=== PATIENT | female | born 1975 | race Caucasian/White ===

== ENCOUNTER 2016-06-28 08:58 | Emergency (ER) | payer SELFPAY ==
[~2016-06-28] VITALS: Ht 170.2 cm; Wt 62.0 kg
[~2016-06-28 08:58] MED LIST: LORTA5 PO; PROBCAP4 PO; ZOFR4TAB3 SL
[2016-06-28 09:01] VITALS: BP 133/89; PULSE 94; RESP 17; TEMP 97.5; O2SAT 100
[2016-06-28] MEDS ORDERED: SODIUM CHLORIDE 0.9% FLUSH 10 ML FLUSH IVF PRN (09:30)
[2016-06-28 09:43] VITALS: BP 131/81; PULSE 90; RESP 16; O2SAT 100
--- NOTE | 2016-06-28 09:58 | PD ---
HPI Chief Complaint: Syncope/Near-Syncope Time Seen by Provider: 09:16 Travel History International Travel<30 days: No Contact w/Intl Traveler<30days: No Traveled to known affect area: No History of Present Illness HPI 40-year-old female here with complaint of syncope. Patient states that she's been going through "early menopause" 2-3 months with increasing hot flashes. Yesterday she had a hot flash or standing up front of the microwave, felt lightheaded, dizzy, nauseous and had a presyncopal episode, falling down and hitting her head. She believes she did hit her head on the cabinets as she fell but is unsure. She's had a slight headache since, as well as some visual changes. She states that intermittently she will feel lightheaded and this is associated with flashes, floaters, blurry vision. In between these spells her vision is normal. 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 She has not had any chest pain, shortness of breath. She notes chronic palpitations but this is not any worse than it is at baseline. PFSH Past Medical History Medical History: Denies Significant Hx Blood Disorders: No Anxiety: No Depression: No Heart Rhythm Problems: No Cancer: No Cardiovascular Problems: No High Cholesterol: No Chest Pain: No Congestive Heart Failure: No Endocrine: No Genitourinary: No Immune Disorder: No Musculoskeletal: No Neurologic: No Psychiatric: No Reproductive: No Respiratory: No ?: Not Para: 1 Past Surgical History Abdominal Surgery: Yes (appendectomy tonsilectomy ) AICD: No Appendectomy: Yes (2004) Arteriovenous Shunt: No Cholecystectomy: Yes Insulin Pump: No Joint Replacement: No Pacemaker: No Tonsillectomy: Yes Other Surgery: Yes Social History Alcohol Use: Yes (OCCASSIONAL) Tobacco Use: No Substance Use: Yes (MARIJUANA OCCASSIONAL) Allergies-Medications (Allergen,Severity, Reaction): Coded Allergies: Latex (Verified Allergy, Severe, 06/28/16) RASH Uncoded Allergies: TAPE (Allergy, Severe, 02/16/15) RASH Reported Meds & Prescriptions Reported Meds & Active Scripts Active Review of Systems Except as stated in HPI: all other systems reviewed are Neg Physical Exam Narrative GENERAL: Well-appearing female in no acute distress SKIN: Focused skin assessment warm/dry. HEAD: Atraumatic. Normocephalic. EYES: Pupils equal and round. EOMI without nystagmus No scleral icterus. No injection or drainage. ENT: No nasal bleeding or discharge. Mucous membranes pink and moist. NECK: Supple without midline tenderness to palpation CARDIOVASCULAR: Regular rate and rhythm. No murmur appreciated. RESPIRATORY: No accessory muscle use. Clear to auscultation. Breath sounds equal bilaterally. GASTROINTESTINAL: Abdomen soft, non-tender, nondistended. MUSCULOSKELETAL: No obvious deformities. No edema. NEUROLOGICAL: Awake and alert. No obvious cranial nerve deficits. Motor grossly within normal limits. Normal speech. PSYCHIATRIC: Appropriate mood and affect; insight and judgment normal. Data Data Last Documented VS Vital Signs Date Time Temp Pulse Resp B/P Pulse Ox O2 Delivery O2 Flow Rate FiO2 06/28/16 09:43 90 16 131/81 100 Room Air 06/28/16 09:01 97.5 Orders Electrocardiogram (06/28/16 ) Basic Metabolic Panel (Bmp) (06/28/16 09:22) Complete Blood Count With Diff (06/28/16 09:22) Magnesium (Mg) (06/28/16 09:22) Ct Brain W/O Iv Contrast(Rout) (06/28/16 09:22) Ecg Monitoring (06/28/16 09:22) Iv Access Insert/Monitor (06/28/16 09:22) Oximetry (06/28/16 09:22) Sodium Chloride 0.9% Flush (Ns Flush) (06/28/16 09:30) Thyroid Stimulating Hormone (06/28/16 09:22) Labs Laboratory Tests Test 06/28/16 09:35 White Blood Count 5.8 TH/MM3 Red Blood Count 4.79 MIL/MM3 Hemoglobin 12.6 GM/DL Hematocrit 38.0 % Mean Corpuscular Volume 79.4 FL Mean Corpuscular Hemoglobin 26.3 PG Mean Corpuscular Hemoglobin 33.2 % Concent Red Cell Distribution Width 16.7 % Platelet Count 237 TH/MM3 Mean Platelet Volume 9.5 FL Neutrophils (%) (Auto) 62.5 % Lymphocytes (%) (Auto) 23.8 % Monocytes (%) (Auto) 10.6 % Eosinophils (%) (Auto) 2.7 % Basophils (%) (Auto) 0.4 % Neutrophils # (Auto) 3.7 TH/MM3 Lymphocytes # (Auto) 1.4 TH/MM3 Monocytes # (Auto) 0.6 TH/MM3 Eosinophils # (Auto) 0.2 TH/MM3 Basophils # (Auto) 0.0 TH/MM3 CBC Comment DIFF FINAL Differential Comment Sodium Level 142 MEQ/L Potassium Level 3.3 MEQ/L Chloride Level 109 MEQ/L Carbon Dioxide Level 25.9 MEQ/L Anion Gap 7 MEQ/L Blood Urea Nitrogen 19 MG/DL Creatinine 0.93 MG/DL Estimat Glomerular Filtration 67 ML/MIN Rate Random Glucose 89 MG/DL Calcium Level 9.6 MG/DL Magnesium Level 1.9 MG/DL Thyroid Stimulating Hormone 1.540 uIU/ML 3rd Gen [facility] Medical Decision Making Medical Screen Exam Complete: Yes Emergency Medical Condition: Yes Medical Record Reviewed: Yes Differential Diagnosis 40-year-old female here with complaint of syncope. Differential includes dehydration, electrolyte abnormality, symptomatic anemia, arrhythmia, hyper/ hypothyroidism. Patient did hit her head with syncopal episode and has been having some visual changes since, unlikely ICH or skull fracture, but will obtain imaging to evaluate for same. Narrative Course Patient placed on monitor, IV established and blood obtained. Twelve-lead EKG shows sinus rhythm without notable ST or T-wave abnormalities and normal intervals. CBC, BMP, magnesium, TSH obtained and notable for potassium 3.3, replaced with [address] of the brain showed no acute abnormalities. Patient reassured and will be discharged home with outpatient PCP follow-up. Diagnosis Primary Impression: Syncope Qualified Code: R55 - Syncope, unspecified syncope type Additional Impression: Hypokalemia Referrals: Primary Care Physician call for appointment Patient Instructions: General Instructions, Syncope (ED) Additional Instructions: Follow-up with primary care physician as discussed. Med/Other Pt SpecificInfo: No Change to Meds Disposition: 01 DISCHARGE HOME Condition: Stable Rosmery Patrick MD June 28, 2016 09:58
[2016-06-28 10:02] LABS: AUTOMATED NEUTROPHIL # 3.7 TH/MM3 (1.8-7.7); BASOPHIL % 0.4 % (0.0-2.0); EOSINOPHIL # 0.2 TH/MM3 (0-0.4); EOSINOPHIL % 2.7 % (0.0-4.0); HEMO FLAGS DIFF FINAL; LYMPH % 23.8 % (9.0-44.0); LYMPHOCYTE # 1.4 TH/MM3 (1.0-4.8); MEAN CELL VOLUME 79.4 FL (80.0-100.0); MEAN CORPUSCULAR HEMOGLOBIN 26.3 PG (27.0-34.0); MEAN CORPUSCULAR HGB CONC 33.2 % (32.0-36.0); MONO % 10.6 % (0.0-8.0); NEUT % 62.5 % (16.0-70.0); PLATELET COUNT 237 TH/MM3 (150-450); RED BLOOD COUNT 4.79 MIL/MM3 (4.00-5.30); RED CELL DISTRIBUTION WIDTH 16.7 % (11.6-17.2); WHITE BLOOD COUNT 5.8 TH/MM3 (4.0-11.0)
--- NOTE | 2016-06-28 10:09 | RADRPT ---
EXAM DATE/TIME: 06/28/2016 10:01 [place] COMPARISON: No previous studies available for comparison. INDICATIONS : Dizziness. Near syncope last night. RADIATION DOSE: 56.37 CTDIvol (mGy) MEDICAL HISTORY : None SURGICAL HISTORY : Appendectomy. Cholecystectomy. ENCOUNTER: Initial ACUITY: 1 day PAIN SCALE: 0/10 LOCATION: cranial TECHNIQUE: Multiple contiguous axial images were obtained of the head. Using automated exposure control and adj ustment of the mA and/or kV according to patient size, radiation dose was kept as low as reasonably a chievable to obtain optimal diagnostic quality images. FINDINGS: CEREBRUM: The ventricles are normal for age. No evidence of midline shift, mass lesion, hemorrhage or acute in farction. No extra-axial fluid collections are seen. POSTERIOR FOSSA: The cerebellum and brainstem are intact. The 4th ventricle is midline. The cerebellopontine angle i s unremarkable. EXTRACRANIAL: The visualized portion of the orbits is intact. SKULL: The calvaria is intact. No evidence of skull fracture. CONCLUSION: Normal examination. Selwyn Lujan Jr., MD on June 28, 2016 at 10:06 Board Certified Radiologist. This report was verified electronically.
[2016-06-28 10:22] LABS: BICARBONATE 25.9 MEQ/L (21.0-32.0); MAGNESIUM 1.9 MG/DL (1.5-2.5); POTASSIUM 3.3 MEQ/L (3.5-5.1)
[2016-06-28] MEDS ORDERED: POTASSIUM CHLORIDE 20 MEQ CONTROLLED RELEASE TAB PO ONE (10:45)
[2016-06-28 10:54] VITALS: BP 131/87
[2016-06-28] MEDS ORDERED: ACETAMINOPHEN 500 MG CPLT PO ONE (11:00)
--- NOTE | 2016-06-29 10:17 | EKG ---
Date Performed: 06/28/2016 Time Performed: 09:40:47 PTAGE: 40 years EKG: Sinus rhythm POSSIBLE LEFT ATRIAL ENLARGEMENT BORDERLINE ECG PREVIOUS TRACING : 02/18/2015 13.58 DOCTOR: João Tracy Interpretating Date/Time 06/29/2016 10:15:16
== END 2016-06-28 10:55 | disposition home or self-care (01) ==
LOC: NEPD 08:58
DX: R55 Syncope and collapse (principal); E87.6 Hypokalemia; F12.90 Cannabis use, unspecified, uncomplicated; R94.31 Abnormal electrocardiogram [ECG] [EKG]
CPT/HCPCS: 70450; 80048; 83735; 84443; 85025; 93005